=== PATIENT | female | born 1960 | race Caucasian/White ===

== ENCOUNTER 2020-10-24 18:57 | Emergency (ER) | payer MEDICAID ==
[~2020-10-24] VITALS: Ht 162.6 cm; Wt 78.9 kg
[~2020-10-24 18:57] MED LIST: ACET-929; AMLO-489; CARI350T22; GABA400C11; INSLANTI; MORP30TA; PROMETHAZINE-CODEINE SYRUP; TRAZ1TAB12
[2020-10-24 19:36] LABS: Basophils # (auto) 0.1 10 ^3/uL (0-0.2); Basophils % (auto) 0.7 % (0.0-2.0); Eosinophils # (auto) 0.1 10 ^3/uL (0-0.8); Hematocrit 35.5 % (36.0-46.0); Hemoglobin 11.9 g/dL (12.2-16.2); Lymphocytes # (auto) 1.9 10 ^3/uL (0.4-5.4); Mean Corpuscular Hemoglobin 29.9 pg (28.0-32.0); Mean Corpuscular Hgb Conc. 33.5 g/dL (32.0-36.0); Mean Corpuscular Volume 89.1 fL (80.0-100.0); Monocytes # (auto) 0.8 10 ^3/uL (0-1.3); Monocytes % (auto) 6.4 % (0.0-12.0); Neutrophils # (auto) 9.1 10 ^3/uL (1.6-8.6); Neutrophils % (auto) 75.9 % (37.0-80.0); Red Blood Cells 3.98 10^6/uL (4.0-5.20); Red Cell Distribution Width 13.7 % (11.8-14.3)
[2020-10-24 19:50] LABS: Albumin 3.3 g/dL (3.4-5.0); Calcium 8.6 mg/dL (8.5-10.1); Potassium 3.8 mmol/L (3.5-5.1)
[2020-10-24 20:00] LABS: Bilirubin, Total 0.3 mg/dL (0.2-1.0); Total Protein 7.4 g/dL (6.4-8.2)
[2020-10-24 22:00] VITALS: BP 142/60
== END 2020-10-24 23:19 | disposition home or self-care (01) ==
LOC: ER 18:57 → EDBD 18:57 → ER 23:18
DX: R07.89 Other chest pain (principal); I24.9 Acute ischemic heart disease, unspecified; E11.9 Type 2 diabetes mellitus without complications; M54.2 Cervicalgia; R51.9 Headache, unspecified; F17.210 Nicotine dependence, cigarettes, uncomplicated
CPT/HCPCS: 36415; 71045; 80053; 84484; 85025; 93005

== ENCOUNTER 2023-02-02 04:45 | Inpatient (IN) | payer MEDICAID ==
[~2023-02-02] VITALS: Ht 162.6 cm; Wt 75.2 kg
[~2023-02-02 04:45] MED LIST changes: -AMLO-489; +AMLO1TAB22; -CARI350T22; +CARI350T27; +GABA-1251; -GABA400C11
[2023-02-02 05:20] VITALS: PULSE 124; RESP 18; O2SAT 96
[2023-02-02 05:25] LABS: Basophils # (auto) 0.1 10 ^3/uL (0-0.2); Basophils % (auto) 0.7 % (0.0-2.0); Eosinophils # (auto) 0.1 10 ^3/uL (0-0.8); Eosinophils % (auto) 0.6 % (0.0-7.0); Hemoglobin 12.3 g/dL (12.2-16.2); Lymphocytes # (auto) 0.9 10 ^3/uL (0.4-5.4); Lymphocytes % (auto) 8.2 % (10.0-50.0); Mean Corpuscular Hemoglobin 28.6 pg (28.0-32.0); Mean Corpuscular Hgb Conc. 33.2 g/dL (32.0-36.0); Mean Corpuscular Volume 86.3 fL (80.0-100.0); Monocytes # (auto) 0.5 10 ^3/uL (0-1.3); Monocytes % (auto) 4.9 % (0.0-12.0); Neutrophils # (auto) 9.3 10 ^3/uL (1.6-8.6); Neutrophils % (auto) 85.6 % (37.0-80.0); Nucleated Red Blood Cells % 0.1 %; Red Blood Cells 4.29 10^6/uL (4.0-5.20); Red Cell Distribution Width 13.6 % (11.8-14.3); White Blood Cell 10.9 10^3/uL (4.4-10.8)
[2023-02-02 05:40] LABS: INR 1.03 (0.9-1.15); Partial Thromboplastin Time 26.2 SEC (24.5-34.5); Prothrombin Time 10.8 sec (9.3-11.8)
[2023-02-02 05:43] LABS: Alanine Aminotransferase 11 U/L (7-40); Albumin 3.8 g/dL (3.2-4.8); Alkaline Phosphatase 174 U/L (46-116); Anion Gap 4 (5-15); Aspartate Aminotransferase < 8 U/L (13-40); BUN/Creatinine Ratio 16.3 (10.0-20.0); Blood Urea Nitrogen 14 mg/dL (9-23); Calcium 9.9 mg/dL (8.7-10.4); Carbon Dioxide 24 mmol/L (20-30); Chloride 103 mmol/L (98-107); Glucose 354 mg/dL (74-106); Magnesium 1.8 mg/dL (1.6-2.6); Sodium 131 mmol/L (136-145)
[2023-02-02 05:44] LABS: Bilirubin, Total 0.4 mg/dL (0.2-1.0)
[2023-02-02] MEDS ORDERED: levoFLOXacin 750MG 150 ML IV ONE (07:30)
[2023-02-02] MEDS ORDERED: IOHEXOL 350 MG/ML 100ML IJ ONE (07:51)
[2023-02-02] MEDS ORDERED: HEPARIN SODIUM (PORCINE) 5000 UNITS/ML 1ML VIAL IV ONE (08:45)
[2023-02-02] MEDS: HEPARIN DRIP/D5W 100UNITS/ML 250 ML IV SCH (08:45)
[2023-02-02 08:50] LABS: Urine Bacteria NONE SEEN /hpf (None Seen); Urine Blood Negative /uL (Negative); Urine Clarity Clear (Clear); Urine Color Yellow (Yellow); Urine Protein, UAD Negative (Negative); Urine Specific Gravity 1.026 (1.001-1.035); Urine Urobilinogen Normal (Negative); Urine WBC 2 /hpf (0 - 5); Urine pH 6.5 (5.0-8.0)
[2023-02-02] MEDS ORDERED: NITROGLYCERIN 0.4 MG SL TAB SL PRN (09:45)
[2023-02-02] MEDS ORDERED: ACETAMINOPHEN 325 MG TAB PO PRN (09:45)
[2023-02-02] MEDS ORDERED: MORPHINE SULFATE INJ 2 MG/ml SYRG IV PRN (09:45)
[2023-02-02] MEDS ORDERED: DEXTROSE (50%) 50ML SYRG IV PRN ×2 (10:00→21:30)
[2023-02-02] MEDS ORDERED: ENOXAPARIN SOD 40 MG/0.4 ML SYRINGE SC SCH (10:00)
[2023-02-02] MEDS: ACCU-CHEK COMFORT CURVE STRIP VI SCH ×3 (11:30→23:11)
[2023-02-02] MEDS: InsuLIN REG 1unit/0.01ml Soln (100units/ml) SC SCH ×3 (11:30→23:17)
[2023-02-02 15:32] LABS: INR 1.11 (0.9-1.15); Partial Thromboplastin Time 67.1 SEC (24.5-34.5); Prothrombin Time 11.6 sec (9.3-11.8)
[2023-02-02 19:44] VITALS: O2SAT 94
[2023-02-02] MEDS: ONDANSETRON HCL 4 MG/2 ML VIAL IV PRN (20:19)
[2023-02-02] MEDS: MORPHINE SULFATE INJ 2 MG/ml SYRG IV PRN (20:20)
[2023-02-02 21:24] LABS: INR 1.07 (0.9-1.15); Partial Thromboplastin Time 54.9 SEC (24.5-34.5); Prothrombin Time 11.2 sec (9.3-11.8)
[2023-02-02] MEDS ORDERED: ALBUTEROL SULF 2.5 MG/0.5ML(0.5%) NEB SOLN NEB PRN (21:30)
[2023-02-02] MEDS ORDERED: LABETALOL HCL 5 MG/ML 4ML SYRINGE IV PRN (22:00)
[2023-02-02] MEDS ORDERED: InsuLIN REG 1unit/0.01ml Soln (100units/ml) SC SCH (22:00)
[2023-02-02 22:14] VITALS: BP 164/89; PULSE 96; RESP 16; O2SAT 93
[2023-02-02] MEDS: HYDROcodone-ACET 5/325MG TAB PO PRN (23:15)
[2023-02-02 23:45] VITALS: BP 155/78; PULSE 90; RESP 20; TEMP 98.3; O2SAT 91; O2SAT 92
[2023-02-03] VITALS (11 sets, daily range): BP systolic 144–159; BP diastolic 73–86; PULSE 88–96; RESP 18–22; TEMP 97.7–98.9; O2SAT 93–96
[2023-02-03] MEDS: HEPARIN DRIP/D5W 100UNITS/ML 250 ML IV SCH ×2 (02:11→18:44)
[2023-02-03] MEDS: ONDANSETRON HCL 4 MG/2 ML VIAL IV PRN ×2 (02:17→06:32)
[2023-02-03] MEDS: MORPHINE SULFATE INJ 2 MG/ml SYRG IV PRN ×3 (02:24→11:18)
[2023-02-03] MEDS ORDERED: TRAZ150T84 PO (02:37)
[2023-02-03] MEDS ORDERED: GABA-1308 PO (02:37)
[2023-02-03] MEDS ORDERED: MORP15TA PO (02:37)
[2023-02-03] MEDS ORDERED: IBUP-1456 PO (02:37)
[2023-02-03] MEDS ORDERED: OXY5T PO (02:37)
[2023-02-03] MEDS ORDERED: HYDR-4798 PO (02:37)
[2023-02-03] MEDS ORDERED: AMLO1TAB23 PO (02:37)
[2023-02-03 02:54] LABS: INR 1.07 (0.9-1.15); Partial Thromboplastin Time 50.9 SEC (24.5-34.5); Prothrombin Time 11.2 sec (9.3-11.8)
[2023-02-03] MEDS: ACCU-CHEK COMFORT CURVE STRIP VI SCH ×4 (06:33→21:28)
[2023-02-03] MEDS: InsuLIN REG 1unit/0.01ml Soln (100units/ml) SC SCH ×4 (06:41→21:31)
[2023-02-03] MEDS: INSULIN LANTUS (GLARGINE) 1 /0.01ml (100units/ml) SC SCH (06:42)
[2023-02-03] MEDS: HYDROcodone-ACET 5/325MG TAB PO PRN ×4 (08:37→21:28)
[2023-02-03 09:00] LABS: Basophils # (auto) 0 10 ^3/uL (0-0.2); Basophils % (auto) 0.3 % (0.0-2.0); Eosinophils # (auto) 0 10 ^3/uL (0-0.8); Eosinophils % (auto) 0.1 % (0.0-7.0); Hematocrit 40.8 % (36.0-46.0); Hemoglobin 13.6 g/dL (12.2-16.2); Lymphocytes # (auto) 1.3 10 ^3/uL (0.4-5.4); Lymphocytes % (auto) 7.7 % (10.0-50.0); Mean Corpuscular Hemoglobin 28.2 pg (28.0-32.0); Mean Corpuscular Hgb Conc. 33.4 g/dL (32.0-36.0); Mean Corpuscular Volume 84.6 fL (80.0-100.0); Monocytes # (auto) 0.6 10 ^3/uL (0-1.3); Monocytes % (auto) 3.8 % (0.0-12.0); Neutrophils # (auto) 15.1 10 ^3/uL (1.6-8.6); Neutrophils % (auto) 88.1 % (37.0-80.0); Red Blood Cells 4.82 10^6/uL (4.0-5.20); Red Cell Distribution Width 13.4 % (11.8-14.3); White Blood Cell 17.1 10^3/uL (4.4-10.8)
[2023-02-03 09:16] LABS: Alanine Aminotransferase 10 U/L (7-40); Albumin 4.5 g/dL (3.2-4.8); Alkaline Phosphatase 188 U/L (46-116); Anion Gap 6 (5-15); Aspartate Aminotransferase 13 U/L (13-40); BUN/Creatinine Ratio 10.9 (10.0-20.0); Bilirubin, Total 0.3 mg/dL (0.2-1.0); Blood Urea Nitrogen 7 mg/dL (9-23); Carbon Dioxide 27 mmol/L (20-30); Chloride 101 mmol/L (98-107); Glucose 249 mg/dL (74-106); Magnesium 1.7 mg/dL (1.6-2.6); Sodium 134 mmol/L (136-145)
[2023-02-03 09:18] LABS: Folate (Folic Acid) 19.4 ng/mL (>5.38)
[2023-02-03 09:19] LABS: Potassium 2.9 mmol/L (3.5-5.1)
[2023-02-03] MEDS: amLODIPine BESYLATE 5 MG TAB PO SCH (09:30)
[2023-02-03 09:45] LABS: Triglycerides 101 mg/dL (< 150)
[2023-02-03] MEDS ORDERED: POTASSIUM EFFERVESENT TAB 25 MEQ PO ONE (09:45)
[2023-02-03 09:46] LABS: LDL Cholesterol 77 mg/dL (< 100)
[2023-02-03 09:47] LABS: Cholesterol 155 mg/dL (< 200); HDL Cholesterol 60 mg/dL (40-59)
[2023-02-03] MEDS ORDERED: GADOTERATE MEG 10 MMOL/20ml INJ (0.5MMOL/ml) IV ONE (11:35)
[2023-02-03] MEDS ORDERED: cefTRIAXone 1GM/50ML D5W 50 ML IV ONE (12:00)
[2023-02-03 12:28] LABS: Rapid Influenza A Negative (Negative); Rapid Influenza B Negative (Negative)
[2023-02-03 12:29] LABS: COVID19 ANTIGEN SOFIA FIA NEGATIVE (NEGATIVE)
[2023-02-03] MEDS ORDERED: AZITHROMYCIN 500MG/ 250ML 250 ML IV ONE (13:00)
[2023-02-03] MEDS: MORPHINE SULFATE 4 MG/ML SYR/VIAL IV PRN ×3 (14:06→23:34)
[2023-02-03] MEDS ORDERED: MORPHINE SULFATE 4 MG/ML SYR/VIAL IV PRN (14:15)
[2023-02-04] VITALS (9 sets, daily range): BP systolic 139–156; BP diastolic 80–91; PULSE 85–106; RESP 19–22; TEMP 97.9–98.9; O2SAT 3–97
[2023-02-04] MEDS: TEMAZEPAM 15 MG CAP PO PRN ×2 (00:43→22:06)
[2023-02-04] MEDS: HYDROcodone-ACET 5/325MG TAB PO PRN ×2 (02:41→08:09)
[2023-02-04] MEDS: ONDANSETRON HCL 4 MG/2 ML VIAL IV PRN (05:28)
[2023-02-04] MEDS: MORPHINE SULFATE 4 MG/ML SYR/VIAL IV PRN ×4 (05:29→21:33)
[2023-02-04] MEDS: ACCU-CHEK COMFORT CURVE STRIP VI SCH ×4 (05:53→22:05)
[2023-02-04 06:28] LABS: INR 1.12 (0.9-1.15); Partial Thromboplastin Time 65.2 SEC (24.5-34.5); Prothrombin Time 11.7 sec (9.3-11.8)
[2023-02-04 06:30] LABS: Alanine Aminotransferase 16 U/L (7-40); Albumin 4.3 g/dL (3.2-4.8); Alkaline Phosphatase 215 U/L (46-116); Anion Gap 7 (5-15); Aspartate Aminotransferase 24 U/L (13-40); BUN/Creatinine Ratio 12.1 (10.0-20.0); Blood Urea Nitrogen 8 mg/dL (9-23); Carbon Dioxide 28 mmol/L (20-30); Chloride 99 mmol/L (98-107); Glucose 178 mg/dL (74-106); Magnesium 1.5 mg/dL (1.6-2.6); Potassium 3.2 mmol/L (3.5-5.1); Sodium 134 mmol/L (136-145)
[2023-02-04 06:31] LABS: Bilirubin, Total 0.4 mg/dL (0.2-1.0); Total Protein 7.6 g/dL (5.7-8.2)
[2023-02-04 06:34] LABS: Basophils # (auto) 0.1 10 ^3/uL (0-0.2); Basophils % (auto) 0.4 % (0.0-2.0); Eosinophils # (auto) 0 10 ^3/uL (0-0.8); Eosinophils % (auto) 0.3 % (0.0-7.0); Hematocrit 40.2 % (36.0-46.0); Hemoglobin 13.4 g/dL (12.2-16.2); Lymphocytes # (auto) 1.5 10 ^3/uL (0.4-5.4); Lymphocytes % (auto) 8.5 % (10.0-50.0); Mean Corpuscular Hemoglobin 28.5 pg (28.0-32.0); Mean Corpuscular Hgb Conc. 33.3 g/dL (32.0-36.0); Mean Corpuscular Volume 85.6 fL (80.0-100.0); Monocytes # (auto) 1.3 10 ^3/uL (0-1.3); Monocytes % (auto) 7.5 % (0.0-12.0); Neutrophils # (auto) 14.4 10 ^3/uL (1.6-8.6); Neutrophils % (auto) 83.3 % (37.0-80.0); Nucleated Red Blood Cells % 0.1 %; Red Cell Distribution Width 13.6 % (11.8-14.3); White Blood Cell 17.3 10^3/uL (4.4-10.8)
[2023-02-04] MEDS: INSULIN LANTUS (GLARGINE) 1 /0.01ml (100units/ml) SC SCH (06:36)
[2023-02-04] MEDS: InsuLIN REG 1unit/0.01ml Soln (100units/ml) SC SCH ×4 (06:37→22:06)
[2023-02-04] MEDS ORDERED: POTASSIUM EFFERVESENT TAB 25 MEQ PO ONE (08:15)
[2023-02-04] MEDS: amLODIPine BESYLATE 5 MG TAB PO SCH (08:20)
[2023-02-04] MEDS ORDERED: IOHEXOL 300 MG/ML 100ML BOTTLE IJ ONE (08:20)
[2023-02-04] MEDS: cefTRIAXone 1GM/50ML D5W 50 ML IV SCH (08:21)
[2023-02-04] MEDS ORDERED: MAGNESIUM SULFATE 1GM/100ML 100 ML IV ONE (09:00)
[2023-02-04] MEDS ORDERED: LORazepam 0.5 MG TAB PO PRN (10:00)
[2023-02-04] MEDS: HYDROcodone-ACET 10/325MG TAB PO PRN ×2 (11:13→23:34)
[2023-02-04] MEDS: HEPARIN DRIP/D5W 100UNITS/ML 250 ML IV SCH (11:20)
[2023-02-04] MEDS: AZITHROMYCIN 500MG/ 250ML 250 ML IV SCH (11:21)
[2023-02-04] MEDS ORDERED: LACTULOSE 20Gm/30ML SOLN PO PRN (18:00)
[2023-02-05] VITALS (10 sets, daily range): BP systolic 109–132; BP diastolic 67–73; PULSE 84–102; RESP 16–22; TEMP 36.5; O2SAT 94–100
[2023-02-05] MEDS: MORPHINE SULFATE 4 MG/ML SYR/VIAL IV PRN ×5 (01:48→21:56)
[2023-02-05] MEDS: HEPARIN DRIP/D5W 100UNITS/ML 250 ML IV SCH ×2 (04:11→20:28)
[2023-02-05] MEDS: HYDROcodone-ACET 10/325MG TAB PO PRN ×4 (04:13→20:03)
[2023-02-05 06:03] LABS: Basophils # (auto) 0.1 10 ^3/uL (0-0.2); Eosinophils # (auto) 0.1 10 ^3/uL (0-0.8); Eosinophils % (auto) 0.7 % (0.0-7.0); Hematocrit 41.8 % (36.0-46.0); Lymphocytes # (auto) 1.8 10 ^3/uL (0.4-5.4); Lymphocytes % (auto) 12.6 % (10.0-50.0); Mean Corpuscular Hemoglobin 28.6 pg (28.0-32.0); Mean Corpuscular Hgb Conc. 33.6 g/dL (32.0-36.0); Mean Corpuscular Volume 85.1 fL (80.0-100.0); Monocytes # (auto) 1.2 10 ^3/uL (0-1.3); Monocytes % (auto) 8.1 % (0.0-12.0); Neutrophils # (auto) 11.1 10 ^3/uL (1.6-8.6); Neutrophils % (auto) 77.6 % (37.0-80.0); Red Blood Cells 4.91 10^6/uL (4.0-5.20); Red Cell Distribution Width 13.8 % (11.8-14.3); White Blood Cell 14.3 10^3/uL (4.4-10.8)
[2023-02-05] MEDS: ACCU-CHEK COMFORT CURVE STRIP VI SCH ×4 (06:09→21:56)
[2023-02-05] MEDS: InsuLIN REG 1unit/0.01ml Soln (100units/ml) SC SCH ×4 (06:11→22:04)
[2023-02-05] MEDS: INSULIN LANTUS (GLARGINE) 1 /0.01ml (100units/ml) SC SCH (06:12)
[2023-02-05 06:22] LABS: Alanine Aminotransferase 18 U/L (7-40); Albumin 4.5 g/dL (3.2-4.8); Alkaline Phosphatase 231 U/L (46-116); Anion Gap 7 (5-15); Aspartate Aminotransferase 23 U/L (13-40); BUN/Creatinine Ratio 12.7 (10.0-20.0); Bilirubin, Total 0.5 mg/dL (0.2-1.0); Blood Urea Nitrogen 9 mg/dL (9-23); Calcium 10.2 mg/dL (8.7-10.4); Carbon Dioxide 29 mmol/L (20-30); Chloride 98 mmol/L (98-107); Glucose 160 mg/dL (74-106); Magnesium 1.9 mg/dL (1.6-2.6); Potassium 3.5 mmol/L (3.5-5.1); Sodium 134 mmol/L (136-145); Total Protein 7.9 g/dL (5.7-8.2)
[2023-02-05 06:36] LABS: INR 1.12 (0.9-1.15); Prothrombin Time 11.7 sec (9.3-11.8)
[2023-02-05 07:03] LABS: Partial Thromboplastin Time 75.2 SEC (24.5-34.5)
[2023-02-05] MEDS: cefTRIAXone 1GM/50ML D5W 50 ML IV SCH (10:04)
[2023-02-05] MEDS: AZITHROMYCIN 500MG/ 250ML 250 ML IV SCH (10:35)
[2023-02-05] MEDS: amLODIPine BESYLATE 5 MG TAB PO SCH (10:39)
[2023-02-05] MEDS ORDERED: APIX5TAB PO (11:39)
[2023-02-05 12:17] LABS: INR 1.05 (0.9-1.15); Partial Thromboplastin Time 59.1 SEC (24.5-34.5)
[2023-02-05] MEDS: ONDANSETRON HCL 4 MG/2 ML VIAL IV PRN (13:11)
[2023-02-05 15:57] LABS: Base Excess 3.2 mmol/L (-2.0-2.0)
[2023-02-05] MEDS: Glucerna Carbsteady SHAKE Vanilla 8oz PO SCH (18:06)
[2023-02-05] MEDS: DOCUSATE SOD 100 MG CAP PO PRN (20:03)
[2023-02-06] VITALS (11 sets, daily range): BP systolic 117–136; BP diastolic 53–82; PULSE 86–107; RESP 18–20; TEMP 97.8–99; O2SAT 90–99
[2023-02-06] MEDS: HYDROcodone-ACET 10/325MG TAB PO PRN ×6 (00:04→22:51)
[2023-02-06] MEDS: MORPHINE SULFATE 4 MG/ML SYR/VIAL IV PRN ×5 (02:32→19:48)
[2023-02-06 06:16] LABS: INR 1.06 (0.9-1.15); Partial Thromboplastin Time 63.4 SEC (24.5-34.5); Prothrombin Time 11.1 sec (9.3-11.8)
[2023-02-06] MEDS: ACCU-CHEK COMFORT CURVE STRIP VI SCH ×4 (06:31→21:15)
[2023-02-06] MEDS: INSULIN LANTUS (GLARGINE) 1 /0.01ml (100units/ml) SC SCH (06:35)
[2023-02-06] MEDS: InsuLIN REG 1unit/0.01ml Soln (100units/ml) SC SCH ×4 (06:35→21:21)
[2023-02-06] MEDS: Glucerna Carbsteady SHAKE Vanilla 8oz PO SCH ×2 (08:00→18:37)
[2023-02-06] MEDS: APIXABAN 5 MG TAB PO SCH ×2 (09:22→21:00)
[2023-02-06] MEDS: cefTRIAXone 1GM/50ML D5W 50 ML IV SCH (09:22)
[2023-02-06] MEDS: amLODIPine BESYLATE 5 MG TAB PO SCH (09:23)
[2023-02-06] MEDS: AZITHROMYCIN 500MG/ 250ML 250 ML IV SCH (10:07)
[2023-02-07] VITALS (8 sets, daily range): BP systolic 126–144; BP diastolic 68–80; PULSE 91–101; RESP 18–21; TEMP 97.4–99.9; O2SAT 92–98
[2023-02-07] MEDS: MORPHINE SULFATE 4 MG/ML SYR/VIAL IV PRN ×6 (00:25→22:23)
[2023-02-07] MEDS: ACCU-CHEK COMFORT CURVE STRIP VI SCH ×4 (06:17→21:22)
[2023-02-07] MEDS: InsuLIN REG 1unit/0.01ml Soln (100units/ml) SC SCH ×4 (06:25→21:24)
[2023-02-07] MEDS: INSULIN LANTUS (GLARGINE) 1 /0.01ml (100units/ml) SC SCH (06:26)
[2023-02-07] MEDS: HYDROcodone-ACET 10/325MG TAB PO PRN ×4 (07:35→21:21)
[2023-02-07] MEDS: Glucerna Carbsteady SHAKE Vanilla 8oz PO SCH ×2 (07:36→18:09)
[2023-02-07] MEDS: APIXABAN 5 MG TAB PO SCH ×2 (09:23→21:21)
[2023-02-07] MEDS: cefTRIAXone 1GM/50ML D5W 50 ML IV SCH (09:23)
[2023-02-07] MEDS: amLODIPine BESYLATE 5 MG TAB PO SCH (09:23)
[2023-02-07] MEDS: AZITHROMYCIN 500MG/ 250ML 250 ML IV SCH (10:04)
[2023-02-07] MEDS: DOCUSATE SOD 100 MG CAP PO PRN ×2 (11:38→21:20)
[2023-02-07] MEDS: ONDANSETRON HCL 4 MG/2 ML VIAL IV PRN (13:44)
[2023-02-08] MEDS: MORPHINE SULFATE 4 MG/ML SYR/VIAL IV PRN ×4 (02:17→17:37)
[2023-02-08 04:57] VITALS: BP 133/72; PULSE 98; RESP 18; TEMP 99; O2SAT 92
[2023-02-08] MEDS: ACCU-CHEK COMFORT CURVE STRIP VI SCH ×3 (06:00→17:30)
[2023-02-08] MEDS: INSULIN LANTUS (GLARGINE) 1 /0.01ml (100units/ml) SC SCH (06:01)
[2023-02-08] MEDS: InsuLIN REG 1unit/0.01ml Soln (100units/ml) SC SCH ×3 (06:02→17:30)
[2023-02-08 08:00] VITALS: PULSE 86; PULSE 97; RESP 18
[2023-02-08] MEDS: Glucerna Carbsteady SHAKE Vanilla 8oz PO SCH ×2 (08:00→18:24)
[2023-02-08 08:59] VITALS: BP 124/64; PULSE 86; RESP 18; TEMP 98.2; O2SAT 98
[2023-02-08] MEDS: cefTRIAXone 1GM/50ML D5W 50 ML IV SCH (09:04)
[2023-02-08] MEDS: APIXABAN 5 MG TAB PO SCH (09:05)
[2023-02-08] MEDS: HYDROcodone-ACET 10/325MG TAB PO PRN ×2 (09:05→13:55)
[2023-02-08] MEDS: amLODIPine BESYLATE 5 MG TAB PO SCH (09:08)
[2023-02-08] MEDS: AZITHROMYCIN 500MG/ 250ML 250 ML IV SCH (11:24)
[2023-02-08] MEDS ORDERED: AZIT500T66 PO (12:13)
[2023-02-08 12:58] VITALS: BP 137/62; PULSE 90; RESP 20; TEMP 99.8; O2SAT 89
[2023-02-08 17:00] VITALS: BP 132/69; PULSE 104; RESP 20; TEMP 98.9; O2SAT 91
[2023-02-08 18:07] VITALS: BP 132/69; PULSE 104; RESP 20
== END 2023-02-08 20:05 | disposition home health service (06) | DRG 720 ==
LOC: EDBD 04:45 → ER 04:45 → TELE 09:40 → TELE-WESTW 23:36
PROVIDERS: ADMIT Nurse Practitioner; ATTEND Nurse Practitioner
DX: A41.89 Other specified sepsis (principal); I26.99 Other pulmonary embolism without acute cor pulmonale; J96.21 Acute and chronic respiratory failure with hypoxia; J15.6 Pneumonia due to other Gram-negative bacteria; J15.9 Unspecified bacterial pneumonia; C34.90 Malignant neoplasm of unspecified part of unspecified bronchus or lung; J44.0 Chronic obstructive pulmonary disease with (acute) lower respiratory infection; E87.1 Hypo-osmolality and hyponatremia; M84.48XA Pathological fracture, other site, initial encounter for fracture; D72.829 Elevated white blood cell count, unspecified; E66.01 Morbid (severe) obesity due to excess calories; E11.65 Type 2 diabetes mellitus with hyperglycemia; R00.0 Tachycardia, unspecified; R51.9 Headache, unspecified; R59.0 Localized enlarged lymph nodes; E87.6 Hypokalemia; Z20.822 Contact with and (suspected) exposure to COVID-19; E83.42 Hypomagnesemia; F41.9 Anxiety disorder, unspecified; I10 Essential (primary) hypertension; F17.210 Nicotine dependence, cigarettes, uncomplicated; Z80.0 Family history of malignant neoplasm of digestive organs; Z68.25 Body mass index [BMI] 25.0-25.9, adult; Z80.3 Family history of malignant neoplasm of breast; Z71.6 Tobacco abuse counseling; Z80.8 Family history of malignant neoplasm of other organs or systems
CPT/HCPCS: 36415; 36600; 70553; 71045; 71275; 74177; 80053; 80061; 81001; 82607; 82746; 82805; 82962; 83036; 83605; 83735; 83880; 84443; 84484; 85025; 85610; 85730; 87426; 87804; 93005; 93306; 93970; 99291; G0378; J0696; J1815; J1956; J2405; J3490

== ENCOUNTER 2023-03-07 19:25 | Inpatient (IN) | payer MEDICAID ==
[~2023-03-07] VITALS: Ht 152.4 cm; Wt 72.1 kg
[~2023-03-07 19:25] MED LIST changes: -ACET-929; -AMLO1TAB22; +AMLO1TAB23 PO; +APIX5TAB PO; +AZIT500T66 PO; -CARI350T27; +ENAL1TAB48 PO; -GABA-1251; +GABA-1308 PO; +GABA800T97 PO; +HYDR-4795; +HYDR-4798 PO; +IBUP-1456 PO; -INSLANTI; +MORP15TA PO; -MORP30TA; +MORP30TA PO; -PROMETHAZINE-CODEINE SYRUP; +SUCR1TAB PO; +TRAZ150T84 PO; -TRAZ1TAB12; +TRAZ1TAB12 PO
[2023-03-07 20:30] LABS: Basophils # (auto) 0.1 10 ^3/uL (0-0.2); Basophils % (auto) 0.3 % (0.0-2.0); Eosinophils # (auto) 0.1 10 ^3/uL (0-0.8); Eosinophils % (auto) 0.4 % (0.0-7.0); Hematocrit 36.4 % (36.0-46.0); Hemoglobin 11.4 g/dL (12.2-16.2); Lymphocytes # (auto) 1.2 10 ^3/uL (0.4-5.4); Lymphocytes % (auto) 5.2 % (10.0-50.0); Mean Corpuscular Hemoglobin 26.7 pg (28.0-32.0); Mean Corpuscular Hgb Conc. 31.4 g/dL (32.0-36.0); Monocytes # (auto) 1.2 10 ^3/uL (0-1.3); Monocytes % (auto) 4.9 % (0.0-12.0); Neutrophils # (auto) 20.9 10 ^3/uL (1.6-8.6); Neutrophils % (auto) 89.2 % (37.0-80.0); Red Blood Cells 4.29 10^6/uL (4.0-5.20); Red Cell Distribution Width 14.3 % (11.8-14.3); White Blood Cell 23.4 10^3/uL (4.4-10.8)
[2023-03-07 20:47] LABS: Alanine Aminotransferase 26 U/L (7-40); Albumin 3.8 g/dL (3.2-4.8); Alkaline Phosphatase 344 U/L (46-116); Anion Gap 8 (5-15); Aspartate Aminotransferase 12 U/L (13-40); BUN/Creatinine Ratio 25.7 (10.0-20.0); Bilirubin, Total 0.3 mg/dL (0.2-1.0); Blood Urea Nitrogen 26 mg/dL (9-23); Carbon Dioxide 25 mmol/L (20-30); Chloride 101 mmol/L (98-107); Glucose 276 mg/dL (74-106); Potassium 3.7 mmol/L (3.5-5.1); Sodium 134 mmol/L (136-145); Total Protein 7.5 g/dL (5.7-8.2)
[2023-03-07 20:59] LABS: Calcium 14.6 mg/dL (8.5-10.1)
[2023-03-08] MEDS ORDERED: LACTATED RINGER'S 2,000 ML IV ONE (01:00)
[2023-03-08] MEDS ORDERED: LACTATED RINGER'S 1,000 ML IV ONE (01:00)
[2023-03-08] MEDS ORDERED: VANCOMYCIN 1GM/250ML 250 ML IV ONE (01:00)
[2023-03-08] MEDS ORDERED: PIPERACILLIN-TAZOB 3.375GM 100 ML IV ONE (01:00)
[2023-03-08] MEDS ORDERED: HYDROcodone-ACET 10/325MG TAB PO ONE (01:45)
[2023-03-08] MEDS ORDERED: IOHEXOL 350 MG/ML 100ML IJ ONE (02:00)
[2023-03-08 02:33] LABS: Urine Bacteria NONE SEEN /hpf (None Seen); Urine Blood Negative /uL (Negative); Urine Clarity Clear (Clear); Urine Color Yellow (Yellow); Urine Hyaline Cast FEW /lpf (0 - 2); Urine Protein, UAD TRACE (Negative); Urine Specific Gravity 1.019 (1.001-1.035); Urine Urobilinogen Normal (Negative); Urine WBC 4 /hpf (0 - 5); Urine pH 5.5 (5.0-8.0)
[2023-03-08] MEDS ORDERED: HYDROcodone-ACET 5/325MG TAB PO PRN (03:00)
[2023-03-08] MEDS ORDERED: ZOLEDRONIC ACID 4 MG in SODIUM CHL 0.9% 100 ML IV ONE (03:00)
[2023-03-08] MEDS ORDERED: TEMAZEPAM 15 MG CAP PO PRN (03:00)
[2023-03-08] MEDS ORDERED: NITROGLYCERIN 0.4 MG SL TAB SL PRN (03:00)
[2023-03-08] MEDS ORDERED: MORPHINE SULFATE INJ 2 MG/ml SYRG IV PRN (03:00)
[2023-03-08] MEDS ORDERED: ACETAMINOPHEN 325 MG TAB PO PRN (03:00)
[2023-03-08] MEDS ORDERED: ONDANSETRON HCL 4 MG/2 ML VIAL IV PRN (03:00)
[2023-03-08 05:00] VITALS: BP 157/71; PULSE 90; RESP 18; TEMP 97.6; O2SAT 97
[2023-03-08] MEDS ORDERED: ENOXAPARIN SOD 40 MG/0.4 ML SYRINGE SC SCH (10:00)
[2023-03-08 10:20] VITALS: PULSE 99; RESP 24; O2SAT 91
[2023-03-08] MEDS: MULTIPLE VITAMIN TAB PO SCH (10:51)
[2023-03-08] MEDS: ASCORBIC ACID 500 MG TAB PO SCH ×2 (10:51→22:01)
[2023-03-08] MEDS: ZINC SULFATE 220mg CAP or TAB PO SCH (10:52)
[2023-03-08] MEDS: MORPHINE SULFATE INJ 2 MG/ml SYRG IV PRN (10:53)
[2023-03-08] MEDS ORDERED: DEXTROSE (50%) 50ML SYRG IV PRN (11:00)
[2023-03-08] MEDS: InsuLIN REG 1unit/0.01ml Soln (100units/ml) SC SCH ×3 (12:38→21:13)
[2023-03-08] MEDS: ACCU-CHEK COMFORT CURVE STRIP VI SCH ×3 (12:58→21:12)
[2023-03-08] MEDS: PIPERACILLIN-TAZOB 3.375GM 100 ML IV SCH ×2 (13:56→15:28)
[2023-03-08] MEDS: SODIUM CHLORIDE 0.9% 1,000 ML IV SCH ×5 (15:03→22:20)
[2023-03-08] MEDS: MORPHINE SULFATE PO SCH ×2 (15:04→22:00)
[2023-03-08] MEDS: GABAPENTIN 400 MG CAP PO SCH ×2 (15:28→22:01)
[2023-03-08 16:00] VITALS: RESP 20; O2SAT 98
[2023-03-08 18:24] VITALS: PULSE 95; RESP 22; O2SAT 100
[2023-03-08] MEDS: ERTAPENEM SOD INJ 1 GM in SODIUM CHL 0.9% 50 ML IV SCH (20:57)
[2023-03-08] MEDS: APIXABAN 5 MG TAB PO SCH (22:01)
[2023-03-08] MEDS: SUCRALFATE 1 GM TAB PO SCH (22:02)
[2023-03-08] MEDS: ENALAPRIL MALEATE 10 MG TAB PO SCH (22:11)
[2023-03-09] MEDS: SODIUM CHLORIDE 0.9% 1,000 ML IV SCH ×5 (03:00→23:29)
[2023-03-09 05:00] VITALS: BP 128/56; PULSE 86; RESP 18; TEMP 98.4; O2SAT 97
[2023-03-09] MEDS: GABAPENTIN 400 MG CAP PO SCH ×3 (05:17→21:45)
[2023-03-09 05:59] LABS: Mean Corpuscular Hgb Conc. 31.8 g/dL (32.0-36.0); Monocytes # (auto) 0.9 10 ^3/uL (0-1.3)
[2023-03-09 06:02] LABS: Basophils # (auto) 0.1 10 ^3/uL (0-0.2); Basophils % (auto) 0.3 % (0.0-2.0); Eosinophils # (auto) 0.2 10 ^3/uL (0-0.8); Eosinophils % (auto) 0.8 % (0.0-7.0); Hematocrit 34.3 % (36.0-46.0); Hemoglobin 10.9 g/dL (12.2-16.2); Lymphocytes % (auto) 5.2 % (10.0-50.0); Mean Corpuscular Hemoglobin 26.8 pg (28.0-32.0); Mean Corpuscular Volume 84.3 fL (80.0-100.0); Monocytes % (auto) 4.5 % (0.0-12.0); Neutrophils # (auto) 17.8 10 ^3/uL (1.6-8.6); Neutrophils % (auto) 89.2 % (37.0-80.0); Red Blood Cells 4.08 10^6/uL (4.0-5.20); Red Cell Distribution Width 14.3 % (11.8-14.3)
[2023-03-09] MEDS: ACCU-CHEK COMFORT CURVE STRIP VI SCH ×4 (06:09→21:48)
[2023-03-09] MEDS: InsuLIN REG 1unit/0.01ml Soln (100units/ml) SC SCH ×4 (06:10→21:49)
[2023-03-09 06:32] LABS: Alanine Aminotransferase 19 U/L (7-40); Alkaline Phosphatase 516 U/L (46-116); Anion Gap 8 (5-15); BUN/Creatinine Ratio 14.7 (10.0-20.0); Blood Urea Nitrogen 10 mg/dL (9-23); Calcium 12.3 mg/dL (8.7-10.4); Carbon Dioxide 25 mmol/L (20-30); Chloride 105 mmol/L (98-107); Glucose 113 mg/dL (74-106); Sodium 138 mmol/L (136-145)
[2023-03-09 06:33] LABS: Aspartate Aminotransferase 19 U/L (13-40); Bilirubin, Total 0.3 mg/dL (0.2-1.0)
[2023-03-09 07:01] LABS: Potassium 2.8 mmol/L (3.5-5.1)
[2023-03-09 08:00] VITALS: PULSE 66; RESP 18; RESP 95
[2023-03-09] MEDS: POTASSIUM CHL 20MEQ/100ML 100 ML IV SCH ×3 (08:30→14:10)
[2023-03-09 09:00] VITALS: BP 143/64; PULSE 90; RESP 15; TEMP 98.6; O2SAT 96
[2023-03-09] MEDS: MAGNESIUM SULFATE 1GM/100ML 100 ML IV SCH ×2 (09:00→10:00)
[2023-03-09] MEDS: APIXABAN 5 MG TAB PO SCH ×2 (10:00→21:43)
[2023-03-09] MEDS: PANTOPRAZOLE 40 MG TAB PO SCH (10:00)
[2023-03-09] MEDS: amLODIPine BESYLATE 5 MG TAB PO SCH (10:00)
[2023-03-09] MEDS: ASCORBIC ACID 500 MG TAB PO SCH ×2 (10:00→21:44)
[2023-03-09] MEDS: MULTIPLE VITAMIN TAB PO SCH (10:00)
[2023-03-09] MEDS ORDERED: ERTAPENEM SOD 1 GM INJ VIAL IM SCH (10:00)
[2023-03-09] MEDS: SUCRALFATE 1 GM TAB PO SCH ×2 (10:00→21:45)
[2023-03-09] MEDS: ENALAPRIL MALEATE 10 MG TAB PO SCH ×2 (10:00→21:46)
[2023-03-09] MEDS: MORPHINE SULFATE PO SCH (10:00)
[2023-03-09] MEDS: ZINC SULFATE 220mg CAP or TAB PO SCH (10:00)
[2023-03-09] MEDS: MORPHINE SULFATE INJ 2 MG/ml SYRG IV PRN (10:45)
[2023-03-09 13:00] VITALS: BP 133/57; PULSE 79; RESP 16; TEMP 98.5; O2SAT 97
[2023-03-09 16:45] VITALS: BP 122/55; PULSE 83; RESP 17; TEMP 97.8; O2SAT 94
[2023-03-09] MEDS: Glucerna Carbsteady SHAKE Chocolate 8oz PO SCH (18:14)
[2023-03-09] MEDS: HYDROmorphone HCL 2 MG/ML VL/or syr IV PRN (19:31)
[2023-03-09] MEDS: ERTAPENEM SOD INJ 1 GM in SODIUM CHL 0.9% 50 ML IV SCH (21:42)
[2023-03-09 22:00] VITALS: BP 111/50; PULSE 89; RESP 18; TEMP 98.4; O2SAT 97
[2023-03-09] MEDS: OXYCODONE W/ ACETAMINOPHEN 5/325MG TABLET PO PRN (23:45)
[2023-03-10] VITALS (7 sets, daily range): BP systolic 132–149; BP diastolic 55–71; PULSE 72–99; RESP 17–21; TEMP 97.7–99; O2SAT 93–98
[2023-03-10] MEDS: SODIUM CHLORIDE 0.9% 1,000 ML IV SCH ×2 (04:14→09:56)
[2023-03-10] MEDS: GABAPENTIN 400 MG CAP PO SCH ×3 (05:04→23:13)
[2023-03-10] MEDS: HYDROmorphone HCL 2 MG/ML VL/or syr IV PRN ×3 (05:06→14:06)
[2023-03-10] MEDS: InsuLIN REG 1unit/0.01ml Soln (100units/ml) SC SCH ×4 (06:21→23:30)
[2023-03-10] MEDS: ACCU-CHEK COMFORT CURVE STRIP VI SCH ×4 (06:21→23:25)
[2023-03-10] MEDS: OXYCODONE W/ ACETAMINOPHEN 5/325MG TABLET PO PRN ×4 (06:35→23:14)
[2023-03-10] MEDS: Glucerna Carbsteady SHAKE Chocolate 8oz PO SCH ×3 (08:00→17:42)
[2023-03-10] MEDS: ZINC SULFATE 220mg CAP or TAB PO SCH (09:57)
[2023-03-10] MEDS: SUCRALFATE 1 GM TAB PO SCH ×2 (09:57→23:13)
[2023-03-10] MEDS: APIXABAN 5 MG TAB PO SCH ×2 (09:57→23:13)
[2023-03-10] MEDS: PANTOPRAZOLE 40 MG TAB PO SCH (09:57)
[2023-03-10] MEDS: MULTIPLE VITAMIN TAB PO SCH (09:57)
[2023-03-10] MEDS: ASCORBIC ACID 500 MG TAB PO SCH ×2 (09:57→23:13)
[2023-03-10] MEDS: ENALAPRIL MALEATE 10 MG TAB PO SCH ×2 (09:57→23:16)
[2023-03-10] MEDS: amLODIPine BESYLATE 5 MG TAB PO SCH (09:58)
[2023-03-10] MEDS: ERTAPENEM SOD INJ 1 GM in SODIUM CHL 0.9% 50 ML IV SCH (23:26)
[2023-03-11] MEDS: HYDROmorphone HCL 2 MG/ML VL/or syr IV PRN ×4 (00:53→20:50)
[2023-03-11] MEDS: OXYCODONE W/ ACETAMINOPHEN 5/325MG TABLET PO PRN ×3 (03:55→17:26)
[2023-03-11 05:00] VITALS: BP 140/60; PULSE 99; RESP 19; TEMP 97.7; O2SAT 92
[2023-03-11] MEDS: GABAPENTIN 400 MG CAP PO SCH ×3 (06:55→20:51)
[2023-03-11] MEDS: InsuLIN REG 1unit/0.01ml Soln (100units/ml) SC SCH ×3 (07:00→17:20)
[2023-03-11] MEDS: ACCU-CHEK COMFORT CURVE STRIP VI SCH ×3 (07:08→17:19)
[2023-03-11 08:00] VITALS: PULSE 70; RESP 18; O2SAT 96
[2023-03-11] MEDS: Glucerna Carbsteady SHAKE Chocolate 8oz PO SCH ×3 (08:00→17:19)
[2023-03-11 09:00] VITALS: BP 137/65; PULSE 97; RESP 18; TEMP 98.8; O2SAT 90
[2023-03-11] MEDS: SUCRALFATE 1 GM TAB PO SCH ×2 (09:13→20:51)
[2023-03-11] MEDS: APIXABAN 5 MG TAB PO SCH ×2 (09:13→20:51)
[2023-03-11] MEDS: PANTOPRAZOLE 40 MG TAB PO SCH (09:13)
[2023-03-11] MEDS: ZINC SULFATE 220mg CAP or TAB PO SCH (09:13)
[2023-03-11] MEDS: amLODIPine BESYLATE 5 MG TAB PO SCH (09:13)
[2023-03-11] MEDS: MULTIPLE VITAMIN TAB PO SCH (09:13)
[2023-03-11] MEDS: ENALAPRIL MALEATE 10 MG TAB PO SCH ×2 (09:14→22:47)
[2023-03-11] MEDS: ASCORBIC ACID 500 MG TAB PO SCH ×2 (09:14→20:50)
[2023-03-11] MEDS ORDERED: ZOLEDRONIC ACID 4 MG in SODIUM CHL 0.9% 100 ML IV ONE (09:30)
[2023-03-11] MEDS ORDERED: FUROSEMIDE 20 MG/2 ML VIAL IV ONE (09:45)
[2023-03-11] MEDS: DOCUSATE SOD 100 MG CAP PO PRN (10:00)
[2023-03-11 10:56] LABS: Basophils # (auto) 0.1 10 ^3/uL (0-0.2); Basophils % (auto) 0.3 % (0.0-2.0); Eosinophils # (auto) 0.2 10 ^3/uL (0-0.8); Eosinophils % (auto) 0.8 % (0.0-7.0); Hematocrit 34.9 % (36.0-46.0); Lymphocytes # (auto) 1.3 10 ^3/uL (0.4-5.4); Mean Corpuscular Hemoglobin 26.6 pg (28.0-32.0); Mean Corpuscular Hgb Conc. 31.5 g/dL (32.0-36.0); Mean Corpuscular Volume 84.4 fL (80.0-100.0); Monocytes # (auto) 1.2 10 ^3/uL (0-1.3); Monocytes % (auto) 5.5 % (0.0-12.0); Neutrophils # (auto) 19.1 10 ^3/uL (1.6-8.6); Neutrophils % (auto) 87.4 % (37.0-80.0); Red Blood Cells 4.14 10^6/uL (4.0-5.20); Red Cell Distribution Width 14.2 % (11.8-14.3); White Blood Cell 21.9 10^3/uL (4.4-10.8)
[2023-03-11 11:14] LABS: Alanine Aminotransferase 29 U/L (7-40); Albumin 3.1 g/dL (3.2-4.8); Alkaline Phosphatase 721 U/L (46-116); Anion Gap 6 (5-15); Aspartate Aminotransferase 28 U/L (13-40); BUN/Creatinine Ratio 14.1 (10.0-20.0); Bilirubin, Total 0.3 mg/dL (0.2-1.0); Blood Urea Nitrogen 9 mg/dL (9-23); Calcium 11.4 mg/dL (8.7-10.4); Carbon Dioxide 27 mmol/L (20-30); Chloride 105 mmol/L (98-107); Glucose 133 mg/dL (74-106); Magnesium 1.4 mg/dL (1.6-2.6); Phosphorus 3.5 mg/dL (2.4-5.1); Sodium 138 mmol/L (136-145)
[2023-03-11 11:40] LABS: Potassium 2.7 mmol/L (3.5-5.1)
[2023-03-11] MEDS ORDERED: POTASSIUM CHL 20 Meq TABLET PO ONE (12:15)
[2023-03-11] MEDS: POTASSIUM CHL 20MEQ/100ML 100 ML IV SCH ×2 (12:45→14:05)
[2023-03-11] MEDS: MAGNESIUM SULFATE 1GM/100ML 100 ML IV SCH ×4 (12:50→17:19)
[2023-03-11] MEDS: SODIUM CHLORIDE 0.9% 1,000 ML IV SCH (12:51)
[2023-03-11] MEDS: POLYETHYLENE GLYCOL 17 GM PWDR PO SCH (12:51)
[2023-03-11 17:00] VITALS: BP 127/60; PULSE 107; RESP 18; TEMP 98.6; O2SAT 93
[2023-03-11 20:00] VITALS: O2SAT 91
[2023-03-11 22:00] VITALS: BP 107/50; PULSE 92; RESP 18; TEMP 98.7; O2SAT 91
[2023-03-11] MEDS: ERTAPENEM SOD INJ 1 GM in SODIUM CHL 0.9% 50 ML IV SCH (22:46)
[2023-03-12] VITALS (13 sets, daily range): BP systolic 123–148; BP diastolic 54–71; PULSE 63–113; RESP 16–46; TEMP 97.9–98.6; O2SAT 90–98
[2023-03-12] MEDS: OXYCODONE W/ ACETAMINOPHEN 5/325MG TABLET PO PRN ×2 (00:11→06:03)
[2023-03-12] MEDS: ACCU-CHEK COMFORT CURVE STRIP VI SCH ×4 (00:52→17:09)
[2023-03-12] MEDS: InsuLIN REG 1unit/0.01ml Soln (100units/ml) SC SCH ×4 (00:53→17:18)
[2023-03-12] MEDS: GABAPENTIN 400 MG CAP PO SCH ×3 (05:58→22:24)
[2023-03-12] MEDS: Glucerna Carbsteady SHAKE Chocolate 8oz PO SCH ×3 (09:53→17:19)
[2023-03-12] MEDS: ASCORBIC ACID 500 MG TAB PO SCH ×2 (10:04→22:24)
[2023-03-12] MEDS: MULTIPLE VITAMIN TAB PO SCH (10:04)
[2023-03-12] MEDS: amLODIPine BESYLATE 5 MG TAB PO SCH (10:05)
[2023-03-12] MEDS: SUCRALFATE 1 GM TAB PO SCH ×2 (10:05→22:36)
[2023-03-12] MEDS: APIXABAN 5 MG TAB PO SCH ×2 (10:05→22:25)
[2023-03-12] MEDS: ZINC SULFATE 220mg CAP or TAB PO SCH (10:05)
[2023-03-12] MEDS: PANTOPRAZOLE 40 MG TAB PO SCH (10:05)
[2023-03-12] MEDS: POLYETHYLENE GLYCOL 17 GM PWDR PO SCH (10:06)
[2023-03-12] MEDS: ENALAPRIL MALEATE 10 MG TAB PO SCH ×2 (10:06→22:25)
[2023-03-12] MEDS: HYDROmorphone HCL 2 MG/ML VL/or syr IV PRN ×3 (10:28→21:24)
[2023-03-12] MEDS: SODIUM CHLORIDE 0.9% 1,000 ML IV SCH (12:30)
[2023-03-12 14:56] LABS: Base Excess 3.4 mmol/L (-2.0-2.0)
[2023-03-12 15:30] LABS: Basophils # (auto) 0.1 10 ^3/uL (0-0.2); Basophils % (auto) 0.4 % (0.0-2.0); Eosinophils # (auto) 0.2 10 ^3/uL (0-0.8); Eosinophils % (auto) 0.8 % (0.0-7.0); Hemoglobin 11.5 g/dL (12.2-16.2)
[2023-03-12 15:31] LABS: Hematocrit 36.7 % (36.0-46.0); Lymphocytes % (auto) 4.5 % (10.0-50.0); Mean Corpuscular Hgb Conc. 31.3 g/dL (32.0-36.0); Mean Corpuscular Volume 86.3 fL (80.0-100.0); Monocytes # (auto) 0.9 10 ^3/uL (0-1.3); Monocytes % (auto) 4.3 % (0.0-12.0); Neutrophils # (auto) 19.3 10 ^3/uL (1.6-8.6); Red Blood Cells 4.25 10^6/uL (4.0-5.20); Red Cell Distribution Width 14.1 % (11.8-14.3); White Blood Cell 21.4 10^3/uL (4.4-10.8)
[2023-03-12 15:51] LABS: Alanine Aminotransferase 24 U/L (7-40); Albumin 3.2 g/dL (3.2-4.8); Alkaline Phosphatase 708 U/L (46-116); Anion Gap 7 (5-15); Aspartate Aminotransferase 22 U/L (13-40); BUN/Creatinine Ratio 16.7 (10.0-20.0); Bilirubin, Total 0.2 mg/dL (0.2-1.0); Blood Urea Nitrogen 11 mg/dL (9-23); Calcium 10.9 mg/dL (8.7-10.4); Carbon Dioxide 27 mmol/L (20-30); Chloride 104 mmol/L (98-107); Glucose 166 mg/dL (74-106); Potassium 3.3 mmol/L (3.5-5.1); Sodium 138 mmol/L (136-145); Total Protein 6.3 g/dL (5.7-8.2)
[2023-03-12] MEDS ORDERED: ALBUTEROL MEDNEB 2.5 mg/3ml NEB ONE ×2 (17:54→23:59)
[2023-03-12] MEDS: ALBUTEROL SULF 2.5 MG/0.5ML(0.5%) NEB SOLN NEB SCH (18:04)
[2023-03-12] MEDS: IPRATROPIUM BROM 0.5 MG/2.5ML INH SOL NEB SCH (18:04)
[2023-03-12] MEDS: ERTAPENEM SOD INJ 1 GM in SODIUM CHL 0.9% 50 ML IV SCH (22:26)
[2023-03-13] VITALS (42 sets, daily range): BP systolic 98–148; BP diastolic 46–99; PULSE 81–120; RESP 14–40; TEMP 98.2–99.5; O2SAT 84–98
[2023-03-13] MEDS: ALBUTEROL SULF 2.5 MG/0.5ML(0.5%) NEB SOLN NEB SCH ×3 (00:03→18:49)
[2023-03-13] MEDS: IPRATROPIUM BROM 0.5 MG/2.5ML INH SOL NEB SCH ×3 (00:03→18:49)
[2023-03-13] MEDS: OXYCODONE W/ ACETAMINOPHEN 5/325MG TABLET PO PRN ×5 (00:32→22:20)
[2023-03-13] MEDS: ACCU-CHEK COMFORT CURVE STRIP VI SCH ×5 (00:32→22:00)
[2023-03-13] MEDS: InsuLIN REG 1unit/0.01ml Soln (100units/ml) SC SCH ×5 (00:38→22:00)
[2023-03-13] MEDS: HYDROmorphone HCL 2 MG/ML VL/or syr IV PRN ×4 (01:24→19:27)
[2023-03-13] MEDS ORDERED: ALBUTEROL MEDNEB 2.5 mg/3ml NEB ONE ×2 (06:20→18:14)
[2023-03-13] MEDS: Glucerna Carbsteady SHAKE Chocolate 8oz PO SCH ×3 (08:00→18:00)
[2023-03-13] MEDS: ASCORBIC ACID 500 MG TAB PO SCH ×2 (09:55→22:19)
[2023-03-13] MEDS: POLYETHYLENE GLYCOL 17 GM PWDR PO SCH (09:55)
[2023-03-13] MEDS: SUCRALFATE 1 GM TAB PO SCH ×3 (09:55→22:19)
[2023-03-13] MEDS: ENALAPRIL MALEATE 10 MG TAB PO SCH ×2 (09:57→22:20)
[2023-03-13] MEDS: APIXABAN 5 MG TAB PO SCH ×2 (09:57→22:00)
[2023-03-13] MEDS: PANTOPRAZOLE 40 MG TAB PO SCH (09:57)
[2023-03-13] MEDS: MULTIPLE VITAMIN TAB PO SCH (09:58)
[2023-03-13] MEDS: ZINC SULFATE 220mg CAP or TAB PO SCH (09:58)
[2023-03-13] MEDS: amLODIPine BESYLATE 5 MG TAB PO SCH (09:58)
[2023-03-13] MEDS: SODIUM CHLORIDE 0.9% 1,000 ML IV SCH (12:42)
[2023-03-13] MEDS ORDERED: FUROSEMIDE 20 MG/2 ML VIAL IV ONE (12:45)
[2023-03-13 13:40] LABS: Basophils # (auto) 0.1 10 ^3/uL (0-0.2); Basophils % (auto) 0.7 % (0.0-2.0); Eosinophils # (auto) 0.1 10 ^3/uL (0-0.8); Eosinophils % (auto) 0.8 % (0.0-7.0); Hematocrit 33.2 % (36.0-46.0); Hemoglobin 10.5 g/dL (12.2-16.2); Lymphocytes # (auto) 0.8 10 ^3/uL (0.4-5.4); Lymphocytes % (auto) 4.7 % (10.0-50.0); Mean Corpuscular Hemoglobin 26.9 pg (28.0-32.0); Mean Corpuscular Hgb Conc. 31.6 g/dL (32.0-36.0); Mean Corpuscular Volume 85.1 fL (80.0-100.0); Monocytes # (auto) 0.9 10 ^3/uL (0-1.3); Neutrophils # (auto) 15.8 10 ^3/uL (1.6-8.6); Neutrophils % (auto) 88.8 % (37.0-80.0); Nucleated Red Blood Cells % 0.1 %; Red Cell Distribution Width 14.3 % (11.8-14.3); White Blood Cell 17.7 10^3/uL (4.4-10.8)
[2023-03-13 13:54] LABS: Alanine Aminotransferase 19 U/L (7-40); Albumin 2.6 g/dL (3.2-4.8); Alkaline Phosphatase 609 U/L (46-116); Anion Gap 7 (5-15); Aspartate Aminotransferase 16 U/L (13-40); BUN/Creatinine Ratio 25.9 (10.0-20.0); Blood Urea Nitrogen 15 mg/dL (9-23); Calcium 8.7 mg/dL (8.7-10.4); Carbon Dioxide 27 mmol/L (20-30); Chloride 104 mmol/L (98-107); Glucose 220 mg/dL (74-106); Potassium 3.2 mmol/L (3.5-5.1); Sodium 138 mmol/L (136-145)
[2023-03-13 13:55] LABS: Bilirubin, Total 0.2 mg/dL (0.2-1.0)
[2023-03-13] MEDS: GABAPENTIN 400 MG CAP PO SCH ×3 (14:18→22:19)
[2023-03-13] MEDS: DOCUSATE SOD 100 MG CAP PO PRN (22:19)
[2023-03-13] MEDS: ERTAPENEM SOD INJ 1 GM in SODIUM CHL 0.9% 50 ML IV SCH (22:19)
[2023-03-14] VITALS (36 sets, daily range): BP systolic 102–152; BP diastolic 52–80; PULSE 92–121; RESP 17–40; TEMP 97.5–99.3; O2SAT 50–100
[2023-03-14] MEDS: IPRATROPIUM BROM 0.5 MG/2.5ML INH SOL NEB SCH ×5 (00:45→17:50)
[2023-03-14] MEDS: ALBUTEROL MEDNEB 2.5 mg/3ml NEB NEB SCH ×5 (00:45→17:50)
[2023-03-14] MEDS: HYDROmorphone HCL 2 MG/ML VL/or syr IV PRN ×5 (03:06→20:34)
[2023-03-14 05:29] LABS: Basophils # (auto) 0.1 10 ^3/uL (0-0.2); Basophils % (auto) 0.3 % (0.0-2.0); Eosinophils # (auto) 0.2 10 ^3/uL (0-0.8); Hematocrit 35.8 % (36.0-46.0); Hemoglobin 11.5 g/dL (12.2-16.2); Lymphocytes % (auto) 5.1 % (10.0-50.0); Mean Corpuscular Hemoglobin 27.2 pg (28.0-32.0); Mean Corpuscular Hgb Conc. 32.3 g/dL (32.0-36.0); Mean Corpuscular Volume 84.1 fL (80.0-100.0); Monocytes # (auto) 1.1 10 ^3/uL (0-1.3); Monocytes % (auto) 5.8 % (0.0-12.0); Neutrophils # (auto) 17.3 10 ^3/uL (1.6-8.6); Neutrophils % (auto) 87.8 % (37.0-80.0); Nucleated Red Blood Cells % 0.1 %; Red Blood Cells 4.25 10^6/uL (4.0-5.20); Red Cell Distribution Width 14.3 % (11.8-14.3); White Blood Cell 19.7 10^3/uL (4.4-10.8)
[2023-03-14 05:44] LABS: Alanine Aminotransferase 18 U/L (7-40); Albumin 3.3 g/dL (3.2-4.8); Alkaline Phosphatase 633 U/L (46-116); Anion Gap 6 (5-15); Aspartate Aminotransferase 18 U/L (13-40); Blood Urea Nitrogen 11 mg/dL (9-23); Calcium 8.9 mg/dL (8.7-10.4); Carbon Dioxide 30 mmol/L (20-30); Chloride 102 mmol/L (98-107); Glucose 163 mg/dL (74-106); Sodium 138 mmol/L (136-145)
[2023-03-14 05:45] LABS: Bilirubin, Total 0.3 mg/dL (0.2-1.0); Total Protein 6.6 g/dL (5.7-8.2)
[2023-03-14] MEDS: GABAPENTIN 400 MG CAP PO SCH ×3 (06:00→22:20)
[2023-03-14] MEDS: InsuLIN REG 1unit/0.01ml Soln (100units/ml) SC SCH ×4 (07:00→22:00)
[2023-03-14] MEDS: ACCU-CHEK COMFORT CURVE STRIP VI SCH ×4 (07:00→22:00)
[2023-03-14] MEDS: Glucerna Carbsteady SHAKE Chocolate 8oz PO SCH ×3 (08:00→18:06)
[2023-03-14] MEDS: APIXABAN 5 MG TAB PO SCH ×2 (09:16→22:00)
[2023-03-14] MEDS: POTASSIUM CHL 20MEQ/100ML 100 ML IV SCH ×2 (09:48→11:17)
[2023-03-14] MEDS: MULTIPLE VITAMIN TAB PO SCH (09:48)
[2023-03-14] MEDS: OXYCODONE W/ ACETAMINOPHEN 5/325MG TABLET PO PRN ×3 (09:49→22:20)
[2023-03-14] MEDS: PANTOPRAZOLE 40 MG TAB PO SCH (09:49)
[2023-03-14] MEDS: ASCORBIC ACID 500 MG TAB PO SCH ×2 (09:49→22:20)
[2023-03-14] MEDS: amLODIPine BESYLATE 5 MG TAB PO SCH (09:49)
[2023-03-14] MEDS: SUCRALFATE 1 GM TAB PO SCH ×2 (09:50→22:20)
[2023-03-14] MEDS: POLYETHYLENE GLYCOL 17 GM PWDR PO SCH (09:50)
[2023-03-14] MEDS: ZINC SULFATE 220mg CAP or TAB PO SCH (09:50)
[2023-03-14] MEDS: ENALAPRIL MALEATE 10 MG TAB PO SCH ×2 (09:50→22:19)
[2023-03-14] MEDS: SODIUM CHLORIDE 0.9% 1,000 ML IV SCH (12:30)
[2023-03-14] MEDS: ERTAPENEM SOD INJ 1 GM in SODIUM CHL 0.9% 50 ML IV SCH (22:19)
[2023-03-15] VITALS (15 sets, daily range): BP systolic 94–123; BP diastolic 46–64; PULSE 88–112; RESP 17–26; TEMP 98.3–99.6; O2SAT 90–95
[2023-03-15] MEDS: ALBUTEROL MEDNEB 2.5 mg/3ml NEB NEB SCH ×4 (00:37→18:40)
[2023-03-15] MEDS: IPRATROPIUM BROM 0.5 MG/2.5ML INH SOL NEB SCH ×4 (00:37→18:40)
[2023-03-15] MEDS: HYDROmorphone HCL 2 MG/ML VL/or syr IV PRN ×5 (02:44→23:56)
[2023-03-15 05:07] LABS: Basophils # (auto) 0 10 ^3/uL (0-0.2); Basophils % (auto) 0.3 % (0.0-2.0); Eosinophils # (auto) 0.2 10 ^3/uL (0-0.8); Hematocrit 31.2 % (36.0-46.0); Hemoglobin 10.1 g/dL (12.2-16.2); Lymphocytes % (auto) 6.2 % (10.0-50.0); Mean Corpuscular Hemoglobin 27.5 pg (28.0-32.0); Mean Corpuscular Hgb Conc. 32.4 g/dL (32.0-36.0); Mean Corpuscular Volume 84.7 fL (80.0-100.0); Monocytes # (auto) 1.2 10 ^3/uL (0-1.3); Monocytes % (auto) 7.1 % (0.0-12.0); Neutrophils # (auto) 13.9 10 ^3/uL (1.6-8.6); Neutrophils % (auto) 85.4 % (37.0-80.0); Nucleated Red Blood Cells % 0.1 %; Red Blood Cells 3.68 10^6/uL (4.0-5.20); Red Cell Distribution Width 14.5 % (11.8-14.3); White Blood Cell 16.3 10^3/uL (4.4-10.8)
[2023-03-15 05:25] LABS: Alanine Aminotransferase 15 U/L (7-40); Albumin 2.8 g/dL (3.2-4.8); Alkaline Phosphatase 476 U/L (46-116); Anion Gap 6 (5-15); Aspartate Aminotransferase 20 U/L (13-40); BUN/Creatinine Ratio 22.6 (10.0-20.0); Bilirubin, Total 0.2 mg/dL (0.2-1.0); Blood Urea Nitrogen 12 mg/dL (9-23); Calcium 7.9 mg/dL (8.7-10.4); Carbon Dioxide 29 mmol/L (20-30); Chloride 104 mmol/L (98-107); Glucose 96 mg/dL (74-106); Potassium 3.4 mmol/L (3.5-5.1); Sodium 139 mmol/L (136-145); Total Protein 5.7 g/dL (5.7-8.2)
[2023-03-15] MEDS: OXYCODONE W/ ACETAMINOPHEN 5/325MG TABLET PO PRN ×4 (05:58→21:15)
[2023-03-15] MEDS: GABAPENTIN 400 MG CAP PO SCH ×3 (06:00→22:33)
[2023-03-15] MEDS: InsuLIN REG 1unit/0.01ml Soln (100units/ml) SC SCH ×4 (06:47→21:26)
[2023-03-15] MEDS: ACCU-CHEK COMFORT CURVE STRIP VI SCH ×4 (06:48→21:19)
[2023-03-15] MEDS: Glucerna Carbsteady SHAKE Chocolate 8oz PO SCH ×3 (08:00→17:07)
[2023-03-15] MEDS: SUCRALFATE 1 GM TAB PO SCH ×2 (08:56→21:15)
[2023-03-15] MEDS: MULTIPLE VITAMIN TAB PO SCH (08:56)
[2023-03-15] MEDS: ZINC SULFATE 220mg CAP or TAB PO SCH (08:56)
[2023-03-15] MEDS: PANTOPRAZOLE 40 MG TAB PO SCH (08:56)
[2023-03-15] MEDS: ASCORBIC ACID 500 MG TAB PO SCH ×2 (08:56→21:15)
[2023-03-15] MEDS: POLYETHYLENE GLYCOL 17 GM PWDR PO SCH (08:57)
[2023-03-15] MEDS: amLODIPine BESYLATE 5 MG TAB PO SCH (09:10)
[2023-03-15] MEDS: ENALAPRIL MALEATE 10 MG TAB PO SCH ×2 (11:21→22:00)
[2023-03-15] MEDS ORDERED: ENOXAPARIN SOD 40 MG/0.4 ML SYRINGE SC ONE (12:45)
[2023-03-15] MEDS ORDERED: POTASSIUM EFFERVESENT TAB 25 MEQ GT ONE (12:45)
[2023-03-15] MEDS ORDERED: FUROSEMIDE 40 MG/4 ML VIAL ONE (13:08)
[2023-03-15] MEDS: DOCUSATE SOD 100 MG CAP PO PRN (13:10)
[2023-03-15] MEDS: FUROSEMIDE 40 MG/4 ML VIAL IV SCH (13:10)
[2023-03-15] MEDS: SODIUM CHLORIDE 0.9% 1,000 ML IV SCH (13:11)
[2023-03-15] MEDS ORDERED: FUROSEMIDE 40 MG/4 ML VIAL IV ONE (13:15)
[2023-03-15] MEDS: ERTAPENEM SOD INJ 1 GM in SODIUM CHL 0.9% 50 ML IV SCH (21:17)
[2023-03-16] VITALS (20 sets, daily range): BP systolic 94–134; BP diastolic 46–85; PULSE 84–104; RESP 13–26; TEMP 98.2–99.3; O2SAT 91–100
[2023-03-16] MEDS: IPRATROPIUM BROM 0.5 MG/2.5ML INH SOL NEB SCH ×4 (00:20→19:00)
[2023-03-16] MEDS: ALBUTEROL MEDNEB 2.5 mg/3ml NEB NEB SCH ×4 (00:20→19:00)
[2023-03-16] MEDS: OXYCODONE W/ ACETAMINOPHEN 5/325MG TABLET PO PRN ×5 (01:42→20:41)
[2023-03-16] MEDS: HYDROmorphone HCL 2 MG/ML VL/or syr IV PRN ×5 (04:44→22:39)
[2023-03-16 05:28] LABS: Basophils # (auto) 0.1 10 ^3/uL (0-0.2); Basophils % (auto) 0.4 % (0.0-2.0); Eosinophils # (auto) 0.2 10 ^3/uL (0-0.8); Eosinophils % (auto) 1.2 % (0.0-7.0); Hematocrit 31.7 % (36.0-46.0); Hemoglobin 10.1 g/dL (12.2-16.2); Lymphocytes # (auto) 1.5 10 ^3/uL (0.4-5.4); Lymphocytes % (auto) 8.6 % (10.0-50.0); Mean Corpuscular Hgb Conc. 31.7 g/dL (32.0-36.0); Mean Corpuscular Volume 85.3 fL (80.0-100.0); Monocytes # (auto) 1.2 10 ^3/uL (0-1.3); Monocytes % (auto) 6.5 % (0.0-12.0); Neutrophils # (auto) 14.7 10 ^3/uL (1.6-8.6); Neutrophils % (auto) 83.3 % (37.0-80.0); Nucleated Red Blood Cells % 0.1 %; Red Blood Cells 3.72 10^6/uL (4.0-5.20); Red Cell Distribution Width 14.6 % (11.8-14.3); White Blood Cell 17.7 10^3/uL (4.4-10.8)
[2023-03-16 05:45] LABS: Alanine Aminotransferase 15 U/L (7-40); Alkaline Phosphatase 519 U/L (46-116); Anion Gap 5 (5-15); Aspartate Aminotransferase 22 U/L (13-40); Bilirubin, Total 0.2 mg/dL (0.2-1.0); Blood Urea Nitrogen 12 mg/dL (9-23); Calcium 7.9 mg/dL (8.7-10.4); Carbon Dioxide 29 mmol/L (20-30); Chloride 104 mmol/L (98-107); Glucose 92 mg/dL (74-106); Potassium 4.2 mmol/L (3.5-5.1); Sodium 138 mmol/L (136-145); Total Protein 5.9 g/dL (5.7-8.2)
[2023-03-16] MEDS: DOCUSATE SOD 100 MG CAP PO PRN (06:19)
[2023-03-16] MEDS: GABAPENTIN 400 MG CAP PO SCH ×3 (06:20→21:31)
[2023-03-16] MEDS: ACCU-CHEK COMFORT CURVE STRIP VI SCH ×4 (07:00→22:31)
[2023-03-16] MEDS: InsuLIN REG 1unit/0.01ml Soln (100units/ml) SC SCH ×4 (07:00→22:48)
[2023-03-16] MEDS: Glucerna Carbsteady SHAKE Chocolate 8oz PO SCH ×3 (08:00→16:27)
[2023-03-16] MEDS: FUROSEMIDE 40 MG/4 ML VIAL IV SCH (08:54)
[2023-03-16] MEDS: MULTIPLE VITAMIN TAB PO SCH (08:54)
[2023-03-16] MEDS: PANTOPRAZOLE 40 MG TAB PO SCH (08:54)
[2023-03-16] MEDS: ENALAPRIL MALEATE 10 MG TAB PO SCH ×2 (08:55→22:44)
[2023-03-16] MEDS: ZINC SULFATE 220mg CAP or TAB PO SCH (08:55)
[2023-03-16] MEDS: SUCRALFATE 1 GM TAB PO SCH ×2 (08:55→21:31)
[2023-03-16] MEDS: ASCORBIC ACID 500 MG TAB PO SCH ×2 (08:55→21:31)
[2023-03-16] MEDS: POLYETHYLENE GLYCOL 17 GM PWDR PO SCH (08:58)
[2023-03-16] MEDS: amLODIPine BESYLATE 5 MG TAB PO SCH (09:57)
[2023-03-16 15:06] LABS: Protein, Body Fluid 2.1 g/dL (.)
[2023-03-16] MEDS: SODIUM CHLORIDE 0.9% 1,000 ML IV SCH (16:30)
[2023-03-16] MEDS: ERTAPENEM SOD INJ 1 GM in SODIUM CHL 0.9% 50 ML IV SCH (21:31)
[2023-03-17] VITALS (53 sets, daily range): BP systolic 80–141; BP diastolic 43–73; PULSE 82–108; RESP 12–25; TEMP 97.6–99.2; O2SAT 89–98
[2023-03-17] MEDS: IPRATROPIUM BROM 0.5 MG/2.5ML INH SOL NEB SCH ×5 (00:54→23:03)
[2023-03-17] MEDS: ALBUTEROL MEDNEB 2.5 mg/3ml NEB NEB SCH ×5 (00:57→23:03)
[2023-03-17] MEDS: OXYCODONE W/ ACETAMINOPHEN 5/325MG TABLET PO PRN ×5 (01:45→22:38)
[2023-03-17] MEDS: HYDROmorphone HCL 2 MG/ML VL/or syr IV PRN ×6 (03:20→20:37)
[2023-03-17] MEDS: InsuLIN REG 1unit/0.01ml Soln (100units/ml) SC SCH ×4 (07:00→22:47)
[2023-03-17] MEDS: ACCU-CHEK COMFORT CURVE STRIP VI SCH ×4 (07:01→22:43)
[2023-03-17] MEDS: GABAPENTIN 400 MG CAP PO SCH ×3 (07:01→22:40)
[2023-03-17] MEDS: SODIUM CHLORIDE 0.9% 1,000 ML IV SCH (07:33)
[2023-03-17] MEDS: Glucerna Carbsteady SHAKE Chocolate 8oz PO SCH ×3 (09:07→18:24)
[2023-03-17] MEDS: POLYETHYLENE GLYCOL 17 GM PWDR PO SCH (09:21)
[2023-03-17] MEDS: SUCRALFATE 1 GM TAB PO SCH ×2 (09:22→22:40)
[2023-03-17] MEDS: ZINC SULFATE 220mg CAP or TAB PO SCH (09:23)
[2023-03-17] MEDS: MULTIPLE VITAMIN TAB PO SCH (09:23)
[2023-03-17] MEDS: PANTOPRAZOLE 40 MG TAB PO SCH (09:24)
[2023-03-17] MEDS: FUROSEMIDE 40 MG/4 ML VIAL IV SCH (09:26)
[2023-03-17] MEDS: ENOXAPARIN SOD 40 MG/0.4 ML SYRINGE SC SCH (09:26)
[2023-03-17] MEDS: ASCORBIC ACID 500 MG TAB PO SCH ×2 (09:26→22:40)
[2023-03-17] MEDS: amLODIPine BESYLATE 5 MG TAB PO SCH (09:38)
[2023-03-17] MEDS: ENALAPRIL MALEATE 10 MG TAB PO SCH ×2 (09:38→22:40)
[2023-03-17] MEDS: ERTAPENEM SOD INJ 1 GM in SODIUM CHL 0.9% 50 ML IV SCH (22:48)
[2023-03-18] VITALS (55 sets, daily range): BP systolic 97–153; BP diastolic 45–79; PULSE 89–128; RESP 12–41; TEMP 98.3–100; O2SAT 80–97
[2023-03-18] MEDS: HYDROmorphone HCL 2 MG/ML VL/or syr IV PRN ×8 (00:41→21:50)
[2023-03-18] MEDS: GABAPENTIN 400 MG CAP PO SCH (05:48)
[2023-03-18] MEDS: ALBUTEROL MEDNEB 2.5 mg/3ml NEB NEB SCH ×3 (06:13→18:37)
[2023-03-18] MEDS: IPRATROPIUM BROM 0.5 MG/2.5ML INH SOL NEB SCH ×3 (06:13→18:37)
[2023-03-18] MEDS: ACCU-CHEK COMFORT CURVE STRIP VI SCH (06:22)
[2023-03-18] MEDS: InsuLIN REG 1unit/0.01ml Soln (100units/ml) SC SCH (06:23)
[2023-03-18] MEDS: Glucerna Carbsteady SHAKE Chocolate 8oz PO SCH ×2 (08:04→13:02)
[2023-03-18] MEDS: SUCRALFATE 1 GM TAB PO SCH (10:00)
[2023-03-18] MEDS: ENALAPRIL MALEATE 10 MG TAB PO SCH (10:00)
[2023-03-18] MEDS: ZINC SULFATE 220mg CAP or TAB PO SCH (10:00)
[2023-03-18] MEDS: amLODIPine BESYLATE 5 MG TAB PO SCH (10:00)
[2023-03-18] MEDS: PANTOPRAZOLE 40 MG TAB PO SCH (10:00)
[2023-03-18] MEDS: MULTIPLE VITAMIN TAB PO SCH (10:00)
[2023-03-18] MEDS: ASCORBIC ACID 500 MG TAB PO SCH (10:00)
[2023-03-18] MEDS: POLYETHYLENE GLYCOL 17 GM PWDR PO SCH (10:00)
[2023-03-18] MEDS: ENOXAPARIN SOD 40 MG/0.4 ML SYRINGE SC SCH (10:58)
[2023-03-18] MEDS: FUROSEMIDE 40 MG/4 ML VIAL IV SCH (11:00)
[2023-03-18] MEDS ORDERED: HYDROmorphone HCL 2 MG/ML VL/or syr IV PRN (11:15)
[2023-03-18] MEDS ORDERED: LORazepam 2MG/ML-1ML VIAL IV PRN (11:15)
[2023-03-18] MEDS ORDERED: hydrALAZINE HCL 20 MG/ML VL IV PRN (15:45)
[2023-03-18] MEDS: D5W/SOD CHL 0.45% 1,000 ML IV SCH (15:59)
[2023-03-18] MEDS: ERTAPENEM SOD INJ 1 GM in SODIUM CHL 0.9% 50 ML IV SCH (21:46)
[2023-03-18] MEDS ORDERED: ERTAPENEM SOD INJ 1 GM in SODIUM CHL 0.9% 50 ML IV SCH (22:00)
[2023-03-18] MEDS: LORazepam 2MG/ML-1ML VIAL IV PRN (22:43)
[2023-03-19] VITALS (58 sets, daily range): BP systolic 100–146; BP diastolic 56–79; PULSE 94–147; RESP 16–48; TEMP 95.8–98.6; O2SAT 35–95
[2023-03-19] MEDS: IPRATROPIUM BROM 0.5 MG/2.5ML INH SOL NEB SCH ×3 (00:08→11:27)
[2023-03-19] MEDS: ALBUTEROL MEDNEB 2.5 mg/3ml NEB NEB SCH ×3 (00:08→11:27)
[2023-03-19] MEDS: HYDROmorphone HCL 2 MG/ML VL/or syr IV PRN ×8 (00:53→21:42)
[2023-03-19] MEDS: LORazepam 2MG/ML-1ML VIAL IV PRN ×3 (04:29→18:00)
[2023-03-19] MEDS: ENOXAPARIN SOD 40 MG/0.4 ML SYRINGE SC SCH ×2 (09:51→10:00)
[2023-03-19] MEDS ORDERED: FUROSEMIDE 40 MG/4 ML VIAL IV SCH (10:00)
[2023-03-19] MEDS ORDERED: PANTOPRAZOLE 40 MG/10 ML VIAL INJ IV SCH (10:00)
[2023-03-19] MEDS: D5W/SOD CHL 0.45% 1,000 ML IV SCH (15:45)
[2023-03-19] MEDS: ERTAPENEM SOD INJ 1 GM in SODIUM CHL 0.9% 50 ML IV SCH (21:41)
[2023-03-20] VITALS (10 sets, daily range): BP systolic 0–109; BP diastolic 0–62; PULSE 0–120; RESP 0–42; TEMP 95.2; O2SAT 0–45
[2023-03-20] MEDS: HYDROmorphone HCL 2 MG/ML VL/or syr IV PRN ×2 (00:50→01:21)
== END 2023-03-20 01:52 | DRG 720 ==
LOC: EDBD 19:25 → ER 19:32 → TELE 03-08 02:48 → MERGE 03-08 02:48 → TELE-EAST 03-08 18:25 → EAST 03-08 18:27 → DOU IN ICU 03-12 17:18
PROVIDERS: ADMIT Internal Medicine; ATTEND Internal Medicine
PROC: 5A0935A Assistance with Respiratory Ventilation, Less than 24 Consecutive Hours, High Flow/Velocity Cannula (ICD-10-PCS; principal; 2023-03-13)
PROC: 0W993ZX Drainage of Right Pleural Cavity, Percutaneous Approach, Diagnostic (ICD-10-PCS; 2023-03-14)
PROC: 5A0945A Assistance with Respiratory Ventilation, 24-96 Consecutive Hours, High Flow/Velocity Cannula (ICD-10-PCS; 2023-03-14)
PROC: 5A0935A Assistance with Respiratory Ventilation, Less than 24 Consecutive Hours, High Flow/Velocity Cannula (ICD-10-PCS; 2023-03-17)
PROC: 5A0935A Assistance with Respiratory Ventilation, Less than 24 Consecutive Hours, High Flow/Velocity Cannula (ICD-10-PCS; 2023-03-18)
PROC: 5A0935A Assistance with Respiratory Ventilation, Less than 24 Consecutive Hours, High Flow/Velocity Cannula (ICD-10-PCS; 2023-03-19)
DX: A41.9 Sepsis, unspecified organism (principal); J96.21 Acute and chronic respiratory failure with hypoxia; L89.150 Pressure ulcer of sacral region, unstageable; J15.5 Pneumonia due to Escherichia coli; C79.51 Secondary malignant neoplasm of bone; J90 Pleural effusion, not elsewhere classified; E87.1 Hypo-osmolality and hyponatremia; D64.9 Anemia, unspecified; E11.65 Type 2 diabetes mellitus with hyperglycemia; N17.9 Acute kidney failure, unspecified; J44.0 Chronic obstructive pulmonary disease with (acute) lower respiratory infection; E86.0 Dehydration; E83.52 Hypercalcemia; I10 Essential (primary) hypertension; K59.00 Constipation, unspecified; J98.11 Atelectasis; R62.7 Adult failure to thrive; J44.1 Chronic obstructive pulmonary disease with (acute) exacerbation; Z88.8 Allergy status to other drugs, medicaments and biological substances; Z51.5 Encounter for palliative care; Z79.01 Long term (current) use of anticoagulants; Z79.899 Other long term (current) drug therapy; Z87.891 Personal history of nicotine dependence; Z86.73 Personal history of transient ischemic attack (TIA), and cerebral infarction without residual deficits; Z85.118 Personal history of other malignant neoplasm of bronchus and lung; Z82.49 Family history of ischemic heart disease and other diseases of the circulatory system; Z82.3 Family history of stroke; Z80.0 Family history of malignant neoplasm of digestive organs; Z74.01 Bed confinement status; Z68.31 Body mass index [BMI] 31.0-31.9, adult
CPT/HCPCS: 32555; 36415; 36600; 71045; 74177; 80053; 81001; 82805; 82962; 83605; 83735; 84100; 85025; 87040; 87070; 87081; 87205; 94640; 97110; 97163; 99291; C9113; G0378; J1335; J1815; J2405; J2543; J3480; J3489